=== PATIENT | female | born 1940 | race Caucasian/White ===

== ENCOUNTER → 2016-12-25 16:58 | Outpatient (CLI) | payer MEDICARE, OTHER | END | disposition home or self-care (01) | LOC: D.MAMMO 14:00 | DX: Z85.3 Personal history of malignant neoplasm of breast (principal); Z12.31 Encounter for screening mammogram for malignant neoplasm of breast ==

== ENCOUNTER 2020-06-07 23:30 | Inpatient (IN) | payer MEDICARE, OTHER ==
[2020-06-07] MEDS ORDERED: CALCIUM 500 +1 EAC3 PO (23:35)
[2020-06-07] MEDS ORDERED: KEPPRA500 MG PO (23:35)
[2020-06-07] MEDS ORDERED: TIROSINT13 MCG PO (23:35)
[2020-06-07] MEDS ORDERED: CELEXA40 MG PO (23:35)
[2020-06-07] MEDS ORDERED: BAYER CHEWABLE81 MG PO (23:35)
[2020-06-07 23:53] LABS: HEMATOCRIT 38.7 % (36.0-48.0); HEMOGLOBIN 12.5 g/dL (12-16); LYMPHOCYTES 21.7 % (15-50); MCH 28.5 pg (26.0-34.0); MCHC 32.3 g/dL (31.0-37.0); MCV 88.4 fL (80.0-100.0); MEAN PLATELET VOLUME 10.9 fL (7.4-10.4); NEUTROPHILS 69.1 % (40-80); PLATELET COUNT 242 10x3/uL (130-400); RBC 4.38 10x6/uL (4.00-5.40); RDW 13.8 % (11.5-14.5); WBC 7.1 10x3/uL (4.8-10.8)
[2020-06-08 00:01] LABS: CALC OSMOLALITY 277 mosm/kg (275-300); CALCIUM 9.1 mg/dL (8.5-10.1); CARBON DIOXIDE 26.6 mmol/L (21.0-32.0); CHLORIDE - SERUM 99 mmol/L (98-107); CREATININE - SERUM 1.2 mg/dL (0.6-1.3); GLUCOSE 187 mg/dL (74-106); POTASSIUM - SERUM 4.2 mmol/L (3.5-5.1); SODIUM 135 mmol/L (136-145); UREA NITROGEN 22 mg/dL (7-18); eGFR NON AFRICAN AMERICAN 46 mL/min (90-120)
[2020-06-08 00:13] LABS: APTT 24.9 SECONDS (22.8-39.4); D-DIMER-QUANTITATIVE 1.19 ug/mLFEU (0.20-0.54); INR 1.04 (0.85-1.17); PROTIME 12.6 SECONDS (11.6-15.0)
[2020-06-08 00:15] LABS: ALBUMIN 2.9 g/dL (3.4-5.0); ALKALINE PHOSPHATASE 99 U/L (30-120); ALT (SGPT) 65 U/L (10-68); BILIRUBIN - TOTAL 0.49 mg/dL (0.2-1.3); C-REACTIVE PROTEIN 6.8 mg/dL (0.0-0.9); LIPASE 917 U/L (73-393); PRO BNP 412 pg/mL (0-450); PROTEIN - SERUM 6.5 g/dL (6.4-8.2); THYROID STIMULATING HORMONE 3.56 uIU/mL (0.36-3.74)
[2020-06-08 00:21] LABS: TROPONIN-I < 0.017 ng/mL (0.000-0.060)
[2020-06-08] MEDS ORDERED: VITAMIN D325 MC1 PO (08:17)
[2020-06-08 18:16] LABS: BASOPHILS 0.1 % (0-2); EOSINOPHILS 0 % (0-7); HEMATOCRIT 37.8 % (36.0-48.0); HEMOGLOBIN 12.2 g/dL (12-16); IMMATURE GRANULOCYTES 0.3 % (0-5); LYMPHOCYTE ABS# 0.36 10x3/uL (1.18-3.74); LYMPHOCYTES 2.7 % (15-50); MCH 28.4 pg (26.0-34.0); MCHC 32.3 g/dL (31.0-37.0); MCV 88.1 fL (80.0-100.0); MEAN PLATELET VOLUME 10.6 fL (7.4-10.4); MONOCYTES 9.3 % (2-11); NEUTROPHIL ABS# 11.55 10x3/uL (1.56-6.13); NEUTROPHILS 87.6 % (40-80); PLATELET COUNT 241 10x3/uL (130-400); RBC 4.29 10x6/uL (4.00-5.40); RDW 14.2 % (11.5-14.5)
[2020-06-08 18:27] LABS: WBC 13.2 10x3/uL (4.8-10.8)
[2020-06-09 02:54] LABS: BILIRUBIN NEGATIVE (NEGATIVE); KETONE NEGATIVE (NEGATIVE); NITRITE NEGATIVE (NEGATIVE); UROBILINOGEN NORMAL mg/dL (< 2)
[2020-06-09 02:56] LABS: BACTERIA FEW HPF (NONE SEEN); SQUAMOUS EPITHELIAL 0-5 HPF (0-4); WHITE CELLS - URINE 0-5 HPF (0-4)
[2020-06-09 06:40] LABS: ALBUMIN 2.3 g/dL (3.4-5.0); ANION GAP 7.7 mmol/L (8-16); BILIRUBIN - TOTAL 0.36 mg/dL (0.2-1.3); CALCIUM 7.6 mg/dL (8.5-10.1); CARBON DIOXIDE 28.3 mmol/L (21.0-32.0); CREATININE - SERUM 1.1 mg/dL (0.6-1.3); PROTEIN - SERUM 5.1 g/dL (6.4-8.2)
[2020-06-09 06:46] LABS: BASOPHILS 0.1 % (0-2); EOSINOPHILS 0 % (0-7); HEMOGLOBIN 10.8 g/dL (12-16); IMMATURE GRANULOCYTES 0.3 % (0-5); LYMPHOCYTE ABS# 0.65 10x3/uL (1.18-3.74); MCH 28.1 pg (26.0-34.0); MCHC 31.8 g/dL (31.0-37.0); MCV 88.5 fL (80.0-100.0); MEAN PLATELET VOLUME 10.9 fL (7.4-10.4); NEUTROPHIL ABS# 9.18 10x3/uL (1.56-6.13); NEUTROPHILS 84.6 % (40-80); PLATELET COUNT 223 10x3/uL (130-400); RBC 3.84 10x6/uL (4.00-5.40); RDW 14.3 % (11.5-14.5); WBC 10.9 10x3/uL (4.8-10.8)
[2020-06-10 05:12] LABS: BASOPHILS 0.1 % (0-2); EOSINOPHILS 0.9 % (0-7); HEMATOCRIT 35.1 % (36.0-48.0); IMMATURE GRANULOCYTES 0.5 % (0-5); LYMPHOCYTES 6.8 % (15-50); MCH 28.1 pg (26.0-34.0); MCHC 31.3 g/dL (31.0-37.0); MCV 89.8 fL (80.0-100.0); MEAN PLATELET VOLUME 10.8 fL (7.4-10.4); MONOCYTES 7.7 % (2-11); NEUTROPHIL ABS# 9.88 10x3/uL (1.56-6.13); PLATELET COUNT 206 10x3/uL (130-400); RBC 3.91 10x6/uL (4.00-5.40); RDW 14.4 % (11.5-14.5); WBC 11.8 10x3/uL (4.8-10.8)
[2020-06-10 05:42] LABS: ALBUMIN 1.9 g/dL (3.4-5.0); ANION GAP 11.1 mmol/L (8-16); BILIRUBIN - TOTAL 0.52 mg/dL (0.2-1.3); CALCIUM 7.7 mg/dL (8.5-10.1); CARBON DIOXIDE 26.9 mmol/L (21.0-32.0); PROTEIN - SERUM 5.6 g/dL (6.4-8.2)
[2020-06-11 04:41] LABS: BASOPHILS 0.1 % (0-2); EOSINOPHILS 1.9 % (0-7); HEMATOCRIT 34.5 % (36.0-48.0); HEMOGLOBIN 10.9 g/dL (12-16); IMMATURE GRANULOCYTES 0.3 % (0-5); LYMPHOCYTE ABS# 0.61 10x3/uL (1.18-3.74); LYMPHOCYTES 5.2 % (15-50); MCH 27.9 pg (26.0-34.0); MCHC 31.6 g/dL (31.0-37.0); MCV 88.2 fL (80.0-100.0); MEAN PLATELET VOLUME 10.5 fL (7.4-10.4); NEUTROPHIL ABS# 9.81 10x3/uL (1.56-6.13); NEUTROPHILS 84.5 % (40-80); PLATELET COUNT 226 10x3/uL (130-400); RBC 3.91 10x6/uL (4.00-5.40); RDW 14.1 % (11.5-14.5); WBC 11.6 10x3/uL (4.8-10.8)
[2020-06-11 05:07] LABS: ALBUMIN 1.6 g/dL (3.4-5.0); ANION GAP 9.2 mmol/L (8-16); BILIRUBIN - TOTAL 0.52 mg/dL (0.2-1.3); CALCIUM 8.1 mg/dL (8.5-10.1); CARBON DIOXIDE 28.4 mmol/L (21.0-32.0); CREATININE - SERUM 0.9 mg/dL (0.6-1.3); MAGNESIUM - SERUM 1.9 mg/dL (1.8-2.4); POTASSIUM - SERUM 3.6 mmol/L (3.5-5.1); PROTEIN - SERUM 5.5 g/dL (6.4-8.2)
[2020-06-12 05:41] LABS: BASOPHILS 0.1 % (0-2); EOSINOPHILS 2.6 % (0-7); HEMATOCRIT 33.3 % (36.0-48.0); HEMOGLOBIN 10.5 g/dL (12-16); IMMATURE GRANULOCYTES 0.6 % (0-5); LYMPHOCYTE ABS# 0.77 10x3/uL (1.18-3.74); MCH 27.9 pg (26.0-34.0); MCHC 31.5 g/dL (31.0-37.0); MCV 88.3 fL (80.0-100.0); MEAN PLATELET VOLUME 10.1 fL (7.4-10.4); MONOCYTES 10.1 % (2-11); NEUTROPHIL ABS# 8.79 10x3/uL (1.56-6.13); NEUTROPHILS 79.6 % (40-80); PLATELET COUNT 236 10x3/uL (130-400); RBC 3.77 10x6/uL (4.00-5.40); WBC 11.1 10x3/uL (4.8-10.8)
[2020-06-12 06:22] LABS: ALBUMIN 1.5 g/dL (3.4-5.0); ANION GAP 6.5 mmol/L (8-16); BILIRUBIN - TOTAL 0.48 mg/dL (0.2-1.3); CARBON DIOXIDE 30.4 mmol/L (21.0-32.0); MAGNESIUM - SERUM 2.1 mg/dL (1.8-2.4); POTASSIUM - SERUM 3.9 mmol/L (3.5-5.1); PROTEIN - SERUM 5.3 g/dL (6.4-8.2)
[2020-06-13 05:31] LABS: BASOPHILS 0.1 % (0-2); EOSINOPHILS 2.5 % (0-7); HEMATOCRIT 32.6 % (36.0-48.0); HEMOGLOBIN 10.5 g/dL (12-16); IMMATURE GRANULOCYTES 1.1 % (0-5); LYMPHOCYTE ABS# 0.57 10x3/uL (1.18-3.74); LYMPHOCYTES 6.3 % (15-50); MCH 27.9 pg (26.0-34.0); MCHC 32.2 g/dL (31.0-37.0); MCV 86.5 fL (80.0-100.0); MONOCYTES 13.8 % (2-11); NEUTROPHIL ABS# 6.93 10x3/uL (1.56-6.13); NEUTROPHILS 76.2 % (40-80); PLATELET COUNT 266 10x3/uL (130-400); RBC 3.77 10x6/uL (4.00-5.40); RDW 13.9 % (11.5-14.5); WBC 9.1 10x3/uL (4.8-10.8)
[2020-06-13 05:45] LABS: ALBUMIN 1.6 g/dL (3.4-5.0); ANION GAP 7.6 mmol/L (8-16); BILIRUBIN - TOTAL 0.37 mg/dL (0.2-1.3); CALCIUM 8.2 mg/dL (8.5-10.1); CARBON DIOXIDE 27.2 mmol/L (21.0-32.0); CREATININE - SERUM 0.8 mg/dL (0.6-1.3); MAGNESIUM - SERUM 1.9 mg/dL (1.8-2.4); POTASSIUM - SERUM 3.8 mmol/L (3.5-5.1); PROTEIN - SERUM 5.3 g/dL (6.4-8.2)
[2020-06-13 10:47] LABS: INR 1.19 (0.85-1.17)
[2020-06-13] MEDS ORDERED: PROTONIX40 MG PO (11:02)
[2020-06-13] MEDS ORDERED: LEVOFLOXACIN500 MG PO (11:03)
[2020-06-13] MEDS ORDERED: TYLENOL W/CODEI1 TAB PO (11:03)
[2020-06-14 10:12] LABS: HEPATITIS C ANTIBODY <0.1 S/CO RAT (0.0-0.9)
== END 2020-06-13 14:50 | disposition home or self-care (01) | DRG 328 ==
LOC: D.OPS 23:30 → D.MS 06-08 07:35
PROVIDERS: Emergency Medicine; Family Medicine; ADMIT Surgery
PROC: 0DQ70ZZ Repair Stomach, Pylorus, Open Approach (ICD-10-PCS; principal; 2020-06-08 05:24)
DX: K25.1 Acute gastric ulcer with perforation (principal); E03.9 Hypothyroidism, unspecified; G40.909 Epilepsy, unspecified, not intractable, without status epilepticus; E66.9 Obesity, unspecified; Z68.36 Body mass index [BMI] 36.0-36.9, adult; Z79.82 Long term (current) use of aspirin

== ENCOUNTER 2020-07-24 05:33 | Day surgery (SDC) | payer MEDICARE, OTHER ==
[~2020-07-24] VITALS: Ht 157.5 cm; Wt 87.7 kg
[~2020-07-24 05:33] MED LIST: BAYER CHEWABLE81 MG PO; CALCIUM 500 +1 EAC3 PO; CELEXA40 MG PO; KEPPRA500 MG PO; LEVOFLOXACIN500 MG PO; PROTONIX40 MG PO; TIROSINT13 MCG PO; TYLENOL W/CODEI1 TAB PO; VITAMIN D325 MC1 PO
[2020-07-24 06:08] LABS: BASOPHILS 0.4 % (0-2); EOSINOPHILS 1.6 % (0-7); HEMATOCRIT 39.3 % (36.0-48.0); HEMOGLOBIN 12.3 g/dL (12-16); IMMATURE GRANULOCYTES 0.2 % (0-5); LYMPHOCYTE ABS# 1.82 10x3/uL (1.18-3.74); LYMPHOCYTES 32.4 % (15-50); MCH 26.7 pg (26.0-34.0); MCHC 31.3 g/dL (31.0-37.0); MCV 85.4 fL (80.0-100.0); MEAN PLATELET VOLUME 12.2 fL (7.4-10.4); MONOCYTES 10.1 % (2-11); NEUTROPHIL ABS# 3.11 10x3/uL (1.56-6.13); NEUTROPHILS 55.3 % (40-80); PLATELET COUNT 250 10x3/uL (130-400); RDW 15.5 % (11.5-14.5); WBC 5.6 10x3/uL (4.8-10.8)
[2020-07-24 06:21] LABS: ANION GAP 14.6 mmol/L (8-16); CALCIUM 9.7 mg/dL (8.5-10.1); CARBON DIOXIDE 25.4 mmol/L (21.0-32.0); CREATININE - SERUM 1.3 mg/dL (0.6-1.3)
[2020-07-24 06:53] VITALS: Ht 157.5 cm; Wt 87.7 kg
--- NOTE | 2020-07-24 09:25 | NUR ---
DC TEACHING COMPLETE, PIV REMOVED, CATHETER INTACT, PT GETTING DRESSED. 0947 F/U APPT MADE 0950 PT DC'D VIA WC ACCOMPANIED BY THIS NURSE TO POV WITH FRIEND DRIVING. HAS ALL BELONGINGS AND DC PACKET.
== END 2020-07-24 09:50 | disposition home or self-care (01) ==
LOC: D.OPS 05:33
PROVIDERS: Anesthesiology; ATTEND Surgery
DX: Z12.11 Encounter for screening for malignant neoplasm of colon (principal); Z87.11 Personal history of peptic ulcer disease; K44.9 Diaphragmatic hernia without obstruction or gangrene; K64.8 Other hemorrhoids; K20.90 Esophagitis, unspecified without bleeding; K25.9 Gastric ulcer, unspecified as acute or chronic, without hemorrhage or perforation; M48.00 Spinal stenosis, site unspecified

== ENCOUNTER → 2020-08-23 12:07 | Outpatient (CLI) | payer MEDICARE, OTHER ==
[2020-07-24 06:53] VITALS: BMI 35.4
== END | disposition home or self-care (01) ==
LOC: D.US 11:30
PROVIDERS: ATTEND Family Medicine
DX: R60.0 Localized edema (principal)